=== PATIENT | female | born 1990 | race Caucasian/White ===

== ENCOUNTER 2019-05-01 19:41 | Inpatient (IN) ==
[2019-05-01] MEDS ORDERED: GLUCAGON IV ONE (20:45)
--- NOTE | 2019-05-01 23:06 | PROVIDER DOCUMENTATION ---
This chart was entered by Aranza Arriaza Scribe, acting as scribe for Claudia Becerra MD. HPI-General Adult - General Chief Complaint: Foreign Body/Throat Stated Complaint: CHOKING/SOMETHING STUCK IN THROAT Time Seen by Provider: 05/01/19 20:22 Source: patient Allergies/Adverse Reactions: Patient Allergies Allergy/AdvReac Type Severity Reaction Status Date / Time clindamycin AdvReac Severe RASH Verified 07/23/18 16:44 Home Medications: Home Medication List Medication Instructions Recorded Confirmed Last Taken Type Acc212/FA/Omega3/Dha/Fish Oil 2 tab PO DAILY 01/17/18 07/23/18 06/09/18 09:00 History [ Gummies] Ondansetron Odt [Zofran Odt] 4 mg PO Q6H PRN PRN 01/26/18 07/23/18 07/23/18 07:00 History Labetalol HCl 200 mg PO BID 06/10/18 07/23/18 Unknown History Cyclobenzaprine [Flexeril] 10 cap PO PRN 07/23/18 Unknown History Promethazine [Phenergan] 1 cap PO Q6H PRN PRN 07/23/18 07/23/18 Unknown History - History of Present Illness -Gen Adult Nature of Presenting Problems: Pt is 29/F presenting to ED w/ c/o chicken caught in her throat. pt sts that she was eating chicken and rice and the chicken got stuck. She sts that she cannot swallow the chicken down and she is having a hard time keeping water or saliva in. Pt did vomit in triage, but sts she cannot swallow normally. denies sob, chest pain or abdominal pain. Quality of Pain: reports: none Severity: reports: mild Onset/Duration: reports: just prior to arrival Timing: reports: still present Context/Activities at Onset: reports: none Modifying Factors: improves with: nothing Associated Symptoms: reports: nausea, vomiting. denies: chest pain, shortness of breath Similar Symptoms Previously?: No Recently seen or treated by another doctor?: No Review of Systems - Adult - REVIEW OF SYSTEMS - ADULT Constitutional: reports: no symptoms reported Eyes: reports: no symptoms reported Ears, Nose, Mouth & Throat: reports: see HPI Cardiovascular: reports: no symptoms reported Respiratory: reports: no symptoms reported Gastrointestinal: reports: see HPI Genitourinary: reports: no symptoms reported Past History - Adult - PAST MEDICAL HISTORY-ADULT Review of Records: reports: Old Records Reviewed, Nursing Assessment Review, Med ications Reviewed, Social history reviewed & non-contributory. Major Childhood Illnesses: reports: denies history Cardiovascular: reports: HTN (borderline), hyperlipidemia (as child) Respiratory: reports: asthma Gastrointestinal: reports: GERD, ulcer Obstetrical/Gynecological: reports: endometriosis Genitourinary: reports: other (endometriosis) Musculoskeletal: reports: denies history Neurological: reports: denies history Endocrine/Immune: reports: denies history Other Conditions: reports: denies history - PRIOR SURGERIES/PROCEDURES Surgical/Procedure History: reports: cholecystectomy, other (tooth, exploratory laparotomy due to endometriosis) - IMMUNIZATION STATUS Childhood Immunizations: See Nurse Assessment Flu Vaccine: See Nurse Assessment - FAMILY HISTORY Family History: reviewed, not pertinent - SOCIAL HISTORY Smoking: denies, non-smoker Substance Use: none/never Alcohol Use Frequency: never Living Situation: family Physical Exam-General - PHYSICAL EXAM-ADULT Initial Vital Signs Reviewed: Yes - CONSTITUTIONAL General Appearance: alert, mild distress, obese, anxious - EYES Eyes: PERRL/EOMI, pink conjunctivae - HEAD, EARS, NOSE, MOUTH & THROAT HENMT: normocephalic/atraumatic, moist mucous membranes, normal ENT inspection, TMs normal, pharynx normal - NECK Neck: non-tender, full range of motion, supple, normal inspection - RESPIRATORY Respiratory: lungs clear, normal breath sounds - CARDIOVASCULAR Cardiovascular: regular rate, rhythm, no edema, no murmur - GASTROINTESTINAL (ABDOMEN) Abdominal Exam: normal bowel sounds, non tender, soft - MUSCULOSKELETAL Back Exam: normal inspection, no CVA tenderness, no vertebral tenderness Extremity: normal range of motion, non-tender, normal gait - NEUROLOGIC Neurologic: grossly normal - PSYCHIATRIC Psych/Mental Status: normal thought content, normal thought process, oriented x 3 Progress - PLAN OF CARE/RESULTS Progress/Plan/Lab Results: Vital Signs - 8 hr 05/01/19 19:54 05/01/19 20:04 Temperature 98.1 F 98.4 F Pulse Rate 86 88 Respiratory Rate 20 16 Blood Pressure 182/91 172/110 O2 Sat by Pulse Oximetry 100 Orders Category Date Time Status Glucagon Med 05/01/19 20:45 Discontinued 1 mg IV NOW ONE Glucagon 1 Mg IV given, patient still feels the food impaction. she drink slight water with regurgitation, couldn't keep it down. spoke to Dr. Rasmussen, plan is to admit and he will do endoscopy tomorrow. - CONSULTS/PCP/HOSPITALIST Notification #1 *Consult/PCP/Hospitalist*: Dr. Espinoza Time Discussed: 22:26 Consult Disposition: Admit (Hx, pe and pt care discussed, accpeted.) Departure - Departure Date of Disposition Decision: 05/01/19 Time of Disposition Decision: 22:26 DIAGNOSIS: Food impaction of esophagus Qualifiers: Encounter type: initial encounter Qualified Code(s): T18.128A - Food in esophagus causing other injury, initial encounter Disposition: ADMITTED INPATIENT 09 Certified Medical Emergency: Emergent Condition: Stable Referrals and Follow-Ups: None,PCP [Primary Care Provider] - - Critical Care Note This patient required my direct & personal management of CC.: No Attestation - Physician/ AMBROCIO Attestation Patient care was provided by Advanced Practice Provider:: No The physician spent face to face time with patient:: Yes Advanced Practice Provider documentation review:: Supervising physician onsite and consulted in the evaluation and care of this patient. The physician did have a face to face encounter with the patient. This chart was documented by the indicated scribe, (Aranza Arriaza, Lindsey) and accurately reflects the services I performed and decisions made by me, Claudia Becerra MD, as attested by the provider's signature.
[2019-05-02] MEDS ORDERED: ZOFRAN IV ONE (00:06)
--- NOTE | 2019-05-02 00:18 | HISTORY AND PHYSICAL ---
PRIMARY CARE PHYSICIAN: None. CHIEF COMPLAINT: Food caught in her throat. HISTORY OF PRESENTING ILLNESS: A 29-year-old female with a history of hypertension, however, currently not on any medication, who had presented to emergency department due to having food that stuck in her throat. She states that she was eating chicken and rice earlier today and it did not seem to pass down. She was having some esophageal discomfort and subsequently she had come to the emergency department. In the ED, she was evaluated and her case was discussed with transportation services representative who recommended admission for further management. At the time of my examination, patient denied any headache, fever, chills, chest pain, shortness of breath, hemoptysis, any weight changes. Just complains of food in her throat. PAST MEDICAL HISTORY: Hypertension. PAST SURGICAL HISTORY: None. ALLERGIES: Clindamycin. CURRENT MEDICATIONS: None. SOCIAL HISTORY: No history of smoking, alcohol or illicit drug use. FAMILY HISTORY: Positive for coronary artery disease in mother and father. REVIEW OF SYSTEMS: Fourteen point review of system as listed in HPI. Other systems negative. PHYSICAL EXAMINATION: GENERAL: Cooperative, friendly, obese female. She is resting more comfortably now. VITAL SIGNS: Temperature 98.4 degrees, pulse 88, respirations 16, blood pressure 172/110. HEENT: Atraumatic, normocephalic. Extraocular movements intact. PERRLA. NECK: Supple. CHEST: Clear to auscultation. CARDIOVASCULAR: Regular rate and rhythm. S1, S2. ABDOMEN: Soft, obese, positive bowel sounds. EXTREMITIES: No edema. NEUROLOGIC: She is awake, alert, oriented x3. GENITOURINARY: No bladder distention. SKIN: Warm. LABORATORIES AND STUDIES: Still pending. ASSESSMENT: A 29-year-old obese female with a history of hypertension who presented to emergency department with 1-day history of having food that is stuck in her throat. She was evaluated the emergency department. She was treated, however, she did have any improvement and her case was discussed with Gastroenterology who recommended admission for further management. Food impaction. PLAN: 1. We will admit patient to medical floor with telemetry. 2. We will keep patient NPO. 3. We will consult Gastroenterology. 4. We will give patient appropriate antiemetic. 5. We will continue to follow, and reassess and make further recommendation based on patient's clinical course. cc: Brayden Espinoza MD MTDD
[2019-05-02] MEDS ORDERED: ZOFRAN IV PRN (00:19)
[2019-05-02 07:53] LABS: BASO# 0.03 X1000 (0.0-0.2); BASO% 0.5 % (0.0-0.8); EOS% 7.3 % (0.0-10.0); HEMATOCRIT 35.3 % (37.0-47.0); LYMPH# 1.44 X1000 (1.2-3.4); LYMPH% 26.2 % (20.5-51.1); MCH 23.9 PG (27-31); MCHC 31.2 g/dL (33-37); MCV 76.6 FL (81-99); MONO# 0.31 X1000 (0.11-0.59); MONO% 5.6 % (1.7-9.3); MPV 11.2 FL (7.4-10.4); NEUT# 3.32 X1000 (1.4-6.5); NEUT% 60.4 % (42.2-75.2); PLT 224 X1000 (130-400); RBC 4.61 XMIL (4.2-5.4); RDW 16.8 % (11.5-14.5)
[2019-05-02 08:20] LABS: AGAP 10; BUN 10 mg/dL (8-22); CALCIUM 8.7 mg/dL (8.8-10.2); CHLORIDE 106 mmol/L (98-107); COSMO 282; CREATININE 0.9 mg/dL (0.5-0.9); ESTIMATED GFR > 60; GLUCOSE 95 mg/dL (70-104); POTASSIUM 3.9 mmol/L (3.5-5.1); SODIUM 142 mmol/L (136-145); TCO2 26 mmol/L (25-35)
--- NOTE | 2019-05-02 08:24 | GASTROENTEROLOGY CONSULTATION ---
DATE: 05/02/2019 CONSULTING PHYSICIAN: Dr. Pereyra in ER. REASON FOR CONSULTATION: Acute food impaction. HISTORY OF PRESENT ILLNESS: This is a 29-year-old white female with no history of major medical problem except for constipation. She sees Dr. Jansen for her GI issues. She has had EGD and colonoscopy a couple years ago. Apparently nothing was found. She was in her usual state of health but last night around 7 p.m. or so, she had eaten some chicken with rice and since then, she feels as if the food is hung in her esophagus and is not going down. Various maneuvers and medications were used including glucagon but nothing seems to have helped. She continues to have difficulty swallowing and she feels that the lump is still in the back of the throat, has some soreness in the back of throat but denies any chest pain, shortness of breath or irregular heartbeat. She has had no fever or chills. She denies any hemoptysis or hematemesis. Denies any coffee-grounds emesis. She has history of constipation and has been using MiraLAX off and on. Again, she has had EGD and colonoscopy by Dr. Jansen a couple years ago apparently that was normal. I do not have the report with me. PAST MEDICAL HISTORY: Significant for hypertension. PAST SURGICAL HISTORY: None. MEDICATIONS: She is not on any medication now. ALLERGIES: No known drug allergies. SOCIAL HISTORY: She is , has 3 children. She works for [employer]. Does not smoke. Does not drink. Does not use illicit drugs. FAMILY HISTORY: Noncontributory. REVIEW OF SYSTEMS: As per HPI as above. PHYSICAL EXAMINATION: General: A very pleasant white female, overweight. She is sitting in the bed, conscious, alert. Has had trouble swallowing and has an emesis basin at the bedside, constantly spitting. Vital signs: Temperature 98.7 degrees, pulse 69 per minute, breathing 18, blood pressure 120/72. She is 5 feet 4 inches tall. She is to 280 pounds. HEENT: Head is atraumatic, normocephalic. Eyes: Conjunctivae is normal. Sclerae anicteric. Nares are patent. No discharge. Mouth: Mucosa is moist. Throat is normal. Neck: Neck is supple. No lymphadenopathy, thyromegaly. Chest: Bilaterally symmetrical, is moving with respirations. Breath sounds are audible bilaterally. No rhonchi or crepitations could be heard. Heart: [*]no murmur could be appreciated. Abdomen: Obese, soft, nontender. No mass or visceromegaly noted. Bowel sounds are audible. Extremities: No pedal edema, cyanosis, clubbing was noted. Central nervous system: Grossly intact. No sensory or motor deficit. LABORATORY DATA: Reviewed. CBC: WBC 5.5, hemoglobin is 11, hematocrit 35.3, MCV 76.6. IMPRESSION AND PLAN: Acute food impaction with no history of major medical problem except for hypertension. Her blood pressure is fine now. She is not on any medication. She needs EGD for foreign body removal. I have explained to her the procedure, risks, benefits and alternative. She understands. All the pertinent questions answered. She agrees to proceed. She will be scheduled as soon as possible. cc: Peter Rasmussen MD
[2019-05-02] MEDS ORDERED: XYLOCAINE-MPF 2% ONE ×2 (08:58→09:00)
[2019-05-02] MEDS ORDERED: VERSED ONE (08:58)
[2019-05-02] MEDS ORDERED: DIPRIVAN 1% ONE ×3 (08:58→17:42)
[2019-05-02] MEDS ORDERED: ROBINUL ONE (08:58)
[2019-05-02] MEDS ORDERED: FLOVENT 220 MICROGM HFA SCH (09:45)
[2019-05-02] MEDS ORDERED: PHENERGAN IV PRN (11:10)
[2019-05-02] MEDS ORDERED: SODIUM CHLORIDE 0.9% INJ PRN (11:10)
[2019-05-02 15:13] VITALS: BP 125/81
--- NOTE | 2019-05-02 19:57 | DISCHARGE SUMMARY ---
ADMISSION DATE: 05/02/2019 DISCHARGE DATE: 05/02/2019 ADMITTING DIAGNOSES: 1. Food impaction of the throat. 2. Constipation. 3. Hypertension. DISCHARGE DIAGNOSES: 1. Esophagitis. 2. Constipation. 3. Hypertension. PROCEDURES AND FINDINGS: EGD was performed on 05/02/2019. The patient was noted to have esophagitis. Several biopsies were performed and all other findings were normal. The impaction had resolved prior to the EGD. CONSULTATIONS: Dr. Rasmussen. HOSPITAL COURSE: This is a [id number] with a history of hypertension who apparently was out eating some chicken and rice on the 05/02/19 and got the food stuck in the back of her throat. She was having some esophageal discomfort and had to come to the emergency department. She was admitted to the medical floor. Dr. Rasmussen was consulted. EGD was performed today on 05/02/19. The patient had apparently already passed the foreign body in the back of her throat. However, they did find esophagitis on the EGD, and several biopsies were performed. The patient is being discharged today home. We will continue Zofran tablets as needed, and the patient will follow up with her [employer] architect if needed. DISCHARGE LABORATORY DATA: White blood cell count 5.5, hemoglobin 11, hematocrit 35.3, platelet count is 224,000. Sodium 142, potassium 3.9, carbon dioxide 26, BUN 10, creatinine is 0.9, GFR is greater than 60, glucose 95, calcium 8.7. DISCHARGE MEDICATIONS: Cyclobenzaprine 10 mg tablet p.o. p.r.n., labetalol 200 mg p.o. daily, Phenergan 25 mg p.o. q. 6 hours p.r.n., omega-3 gummies chews 2 tablets p.o. daily, Prilosec 40 mg p.o. daily, and ondansetron ODT 4 mg p.o. q. 6 hours p.r.n. DISCHARGE DIET: Resume previous diet as tolerated. DISCHARGE ACTIVITY: Resume normal activity as tolerated.. DISCHARGE DISPOSITION AND OTHER DISCHARGE INSTRUCTIONS: We will discharge this patient home with self care. She will follow up with the [employer] exchange architect if needed. Prescriptions are written for Prilosec 40 mg p.o. daily and Zofran 4 mg p.o. q. 6 hours p.r.n. Dictated by JANICE Delacruz for Paul Mcneil MD cc: MD Peter Lee MD Pt seen and examined , she was still having emesis after EGD however after further monitoring and antiemetic therapy , she was able to tolerate her meal later in the day and then it was felt she was stable for discharge; her exam showed normal abdominal exam, this is addendum in conjunction with janice. MTDD
[2019-05-03] MEDS ORDERED: PRILOSEC PO SCH (07:00)
== END 2019-05-02 19:33 | disposition home or self-care (01) | DRG 392 ==
LOC: ED 19:41 → SUATTDRO 05-02 00:05 → 3N 05-02 00:05
PROVIDERS: ATTEND Internal Medicine
CPT/HCPCS: 80048; 85025; 94640; 94761; A9270; J1610; J2250; J2405; J2550